=== PATIENT | female | born 1995 | race African-American/Black ===

== ENCOUNTER 2019-01-13 13:41 | Outpatient (CLI) | payer OTHER ==
--- NOTE | 2019-01-13 14:29 | ULT ---
RIGHT BREAST ULTRASOUND: Date: 01/13/19 HISTORY: Right breast lump palpable at the 10 o'clock position. 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 FINDINGS/IMPRESSION: Sonographic evaluation of the region of palpable concern at the 10 o'clock position of the right [address], 3.0 cm from the nipple, demonstrates no abnormality. Age-appropriate screening is recommended bas ed on risk factors. POS: OFF
== END 2019-01-13 13:42 | disposition home or self-care (01) ==
LOC: BICULT 13:41
PROVIDERS: ATTEND Student in an Organized Health Care Education/Training Program
DX: N63.11 Unspecified lump in the right breast, upper outer quadrant (principal)

== ENCOUNTER 2020-06-03 13:59 | Outpatient (CLI) | payer OTHER ==
--- NOTE | 2020-06-03 14:30 | ULT ---
EXAM: Soft tissue ultrasound: INDICATIONS: Area of palpable concern under chin overlying and excretion region. Directed soft tissue ultrasound of the area of concern. COMPARISON: None. FINDINGS: Small lymph node identified measuring 1.0 x 0.7 x 0.3 cm. No other abnormality. IMPRESSION: Small nonspecific lymph node at area of concern.
== END 2020-06-03 14:00 | disposition home or self-care (01) ==
LOC: BICULT 13:59
PROVIDERS: ATTEND Physician Assistant
DX: R22.1 Localized swelling, mass and lump, neck (principal)
CPT/HCPCS: 76536

== ENCOUNTER 2022-06-04 08:01 | Outpatient (CLI) | payer BC | END 2022-06-04 08:02 | disposition home or self-care (01) | LOC: BICULT 08:01 | PROVIDERS: ATTEND Student in an Organized Health Care Education/Training Program | DX: N63.11 Unspecified lump in the right breast, upper outer quadrant (principal) ==

== ENCOUNTER 2022-08-24 16:33 | Outpatient (CLI) | payer BC | END 2022-08-24 16:34 | disposition home or self-care (01) | LOC: BICRAD 16:33 | PROVIDERS: ATTEND Nurse Practitioner Family | DX: M79.672 Pain in left foot (principal) ==

== ENCOUNTER 2023-01-27 07:44 | Outpatient (CLI) | payer BC | END 2023-01-27 07:45 | disposition home or self-care (01) | LOC: SCSMRI 07:44 | PROVIDERS: ATTEND Nurse Practitioner Family | DX: M54.17 Radiculopathy, lumbosacral region (principal) | CPT/HCPCS: 72148 ==